=== PATIENT | male | born 1995 | race Caucasian/White ===

== ENCOUNTER 2017-01-22 22:35 | Inpatient (IN) | payer OTHER, MEDICAID ==
[~2017-01-22] VITALS: Ht 160 cm; Wt 68.9 kg
[2017-01-22 22:35] VITALS: BP_SYST 112
[2017-01-22] MEDS ORDERED: LAMO200T2 PO ×2 (22:57)
[2017-01-22] MEDS ORDERED: CLON1TAB4 PO (22:57)
[2017-01-22] MEDS ORDERED: LORazepam 2 MG/ML VIAL (FOR ER USE) IVP ONE (23:00)
[2017-01-22] MEDS ORDERED: LORazepam 2 MG/ML VIAL IM ONE (23:30)
[2017-01-23 01:36] LABS: BASOPHILS # (AUTO) 0.1 K/uL (0.0-0.2); EOSINOPHILS # (AUTO) 0.1 K/uL (0.0-0.4); LYMPHOCYTES # (AUTO) 1.2 K/uL (1.0-5.5); MEAN CORPUSCULAR HGB CONC 33 % (32-36)
[2017-01-23 01:42] LABS: BASOPHILS % (AUTO) 0.5 % (0.0-2.0); EOSINOPHILS % (AUTO) 0.8 % (0.0-4.0); HEMATOCRIT 51.3 % (36-54); LYMPHOCYTES % (AUTO) 6.3 % (20.5-51.5); MEAN CORPUSCULAR HEMOGLOBIN 29 pg (27-31); MEAN CORPUSCULAR VOLUME 89 fL (79.0-98.0); MONOCYTES # (AUTO) 0.7 K/uL (0.0-1.0); MONOCYTES % (AUTO) 3.7 % (1.7-9.3); NEUTROPHILS # (AUTO) 16.4 K/uL (1.8-7.7); NEUTROPHILS % (AUTO) 88.7 % (40.0-70.0); PLATELET COUNT (AUTO) 292 K/uL (130-430); RED BLOOD CELL COUNT(AUTO) 5.79 MIL/uL (4.2-6.2); RED CELL DISTRIBUTION WIDTH 12.2 % (9.0-15.0); WHITE BLOOD COUNT (AUTO) 18.5 K/uL (4.5-11.0)
[2017-01-23 01:44] LABS: CREATININE 0.72 mg/dL (0.55-1.30); POTASSIUM 3.9 mmol/L (3.5-5.1)
[2017-01-23 01:59] LABS: TOTAL BILIRUBIN 0.8 mg/dL (0.0-1.0)
[2017-01-23] MEDS ORDERED: ONDANSETRON HCL 4 MG/2 ML VIAL IM ONE (02:15)
[2017-01-23 02:28] LABS: PROTHROMBIN TIME 10.3 SECS (9.5-12.5)
[2017-01-23] MEDS ORDERED: cefTRIAXone 2 GM VIAL ONE (02:37)
[2017-01-23] MEDS ORDERED: LORazepam 2 MG/ML VIAL IVP PRN ×2 (03:00→06:30)
[2017-01-23 03:05] LABS: BILIRUBIN,URINE NEGATIVE (NEGATIVE); BLOOD, URINE TRACE (NEGATIVE); CLARITY/URINE SL CLOUDY (CLEAR); COLOR,URINE YELLOW (YELLOW); GLUCOSE,URINE NEGATIVE (NEGATIVE); KETONES,URINE NEGATIVE (NEGATIVE); LEUKOCYTE ESTERASE ,URINE NEGATIVE (NEGATIVE); NITRITE, URINE NEGATIVE (NEGATIVE); PROTEIN URINE 1+ (NEGATIVE); UROBILINOGEN,URINE 0.2 (0.2-1.0)
[2017-01-23 03:16] LABS: BACTERIA,URINE MODERATE /HPF (None Seen); RBC,URINE 0-3 /HPF (0-3); URINE AMORPHOUS PHOSPHATES 1+ /HPF (None Seen); WBC,URINE 0-3 /HPF (0-3)
[2017-01-23 03:18] LABS: BARBITURATE, URINE NEGATIVE (NEG <=200); BENZODIAZEPINE, URINE POSITIVE (NEG <=150); CANNABINOID, URINE NEGATIVE (NEG <=50); COCAINE, URINE NEGATIVE (NEG <=150); METHAMPHETAMINES SCREEN,URINE NEGATIVE (NEG <=500); OPIATE, URINE NEGATIVE (NEG <=100); PHENCYCLIDINE SCREEN,URINE NEGATIVE (NEG <=25); UR TRICYCLIC ANTIDEPRESSANTS NEGATIVE (NEG <=300); URINE AMPHETAMINE NEGATIVE (NEG <=500); URINE METHADONE NEGATIVE (NEG <=200); URINE OXYCODONE SCREEN NEGATIVE (NEG <=100); URINE PROPOXYPHENE SCREEN NEGATIVE (NEG <=300)
[2017-01-23 03:24] VITALS: BP_SYST 147
[2017-01-23] MEDS ORDERED: FLU VACC QS 2017-18(36MOS+)/PF 0.5 ML/SYR SYRINGE I.M. PRN (04:15)
[2017-01-23] MEDS: D5NS 1,000 ML IV SCH ×3 (04:38→17:50)
[2017-01-23] MEDS ORDERED: ACETAMINOPHEN 325 MG TABLET PO PRN (06:30)
[2017-01-23] MEDS ORDERED: ZOLPIDEM TARTRATE 5 MG TABLET PO PRN (06:30)
[2017-01-23] MEDS ORDERED: POTASSIUM CHLORIDE 20 MEQ TAB.PRT.SR PO PRN (06:30)
[2017-01-23] MEDS ORDERED: MAGNESIUM SULFATE 50 ML IV PRN (06:30)
[2017-01-23] MEDS ORDERED: ONDANSETRON HCL 4 MG/2 ML VIAL IVP PRN (06:30)
[2017-01-23] MEDS ORDERED: DOCUSATE SODIUM 100 MG CAPSULE PO PRN (06:30)
[2017-01-23] MEDS ORDERED: MUPIROCIN 2% TOPICAL OINTMENT 22 GM NS PRN (06:30)
[2017-01-23] MEDS ORDERED: MORPHINE 2 MG/ML INJ. SYRINGE IVP PRN ×2 (06:30)
[2017-01-23 08:00] VITALS: BP_SYST 116
[2017-01-23] MEDS ORDERED: LamoTRIgine 100 MG TABLET PO SCH ×2 (09:00→18:00)
[2017-01-23] MEDS: clonazePAM 0.5 MG TABLET PO SCH ×2 (10:03→20:22)
[2017-01-23] MEDS: HEPARIN SODIUM,PORCINE 5000 UNITS/ML VIAL SUBCUT SCH ×2 (10:04→20:23)
[2017-01-23 12:09] VITALS: BP_SYST 127
[2017-01-23 16:03] VITALS: BP_SYST 109
[2017-01-23 20:04] VITALS: BP_SYST 99
[2017-01-23] MEDS: cefTRIAXone 1 GM in D5W 50 ML IV SCH (20:22)
[2017-01-23] MEDS: LamoTRIgine 100 MG TABLET PO SCH (20:23)
[2017-01-24 00:12] VITALS: BP_SYST 98
[2017-01-24 04:06] VITALS: BP_SYST 97
[2017-01-24 07:17] LABS: BASOPHILS # (AUTO) 0.1 K/uL (0.0-0.2); BASOPHILS % (AUTO) 1.3 % (0.0-2.0); EOSINOPHILS # (AUTO) 0.4 K/uL (0.0-0.4); EOSINOPHILS % (AUTO) 4.2 % (0.0-4.0); HEMATOCRIT 48.4 % (36-54); HEMOGLOBIN 16.4 g/dL (14.0-18.0); LYMPHOCYTES # (AUTO) 2.4 K/uL (1.0-5.5); LYMPHOCYTES % (AUTO) 26.4 % (20.5-51.5); MEAN CORPUSCULAR HEMOGLOBIN 30 pg (27-31); MEAN CORPUSCULAR HGB CONC 34 % (32-36); MEAN CORPUSCULAR VOLUME 88 fL (79.0-98.0); MONOCYTES # (AUTO) 0.9 K/uL (0.0-1.0); MONOCYTES % (AUTO) 10.4 % (1.7-9.3); NEUTROPHILS # (AUTO) 5.2 K/uL (1.8-7.7); NEUTROPHILS % (AUTO) 57.7 % (40.0-70.0); PLATELET COUNT (AUTO) 249 K/uL (130-430); RED CELL DISTRIBUTION WIDTH 12.5 % (9.0-15.0)
[2017-01-24 07:19] LABS: CREATININE 0.74 mg/dL (0.55-1.30); POTASSIUM 3.5 mmol/L (3.5-5.1)
[2017-01-24 08:40] VITALS: BP_SYST 100
[2017-01-24] MEDS: LamoTRIgine 100 MG TABLET PO SCH ×2 (08:41→20:22)
[2017-01-24] MEDS: clonazePAM 0.5 MG TABLET PO SCH ×2 (08:41→20:22)
[2017-01-24] MEDS: HEPARIN SODIUM,PORCINE 5000 UNITS/ML VIAL SUBCUT SCH ×2 (08:42→20:24)
[2017-01-24] MEDS: D5NS 1,000 ML IV SCH ×2 (09:56→21:54)
[2017-01-24 12:21] VITALS: BP_SYST 104
[2017-01-24] MEDS ORDERED: AZITHROMYCIN 500 MG in D5W 250 ML IV SCH (15:00)
[2017-01-24 16:53] VITALS: BP_SYST 100
[2017-01-24] MEDS ORDERED: DIPHENHYDRAMINE HCL 12.5 MG/5 ML UDC PO PRN (19:00)
[2017-01-24 20:00] VITALS: BP_SYST 111
[2017-01-24] MEDS: cefTRIAXone 1 GM in D5W 50 ML IV SCH (20:29)
[2017-01-25] MEDS: D5NS 1,000 ML IV SCH ×2 (02:30→12:12)
[2017-01-25 04:23] VITALS: BP_SYST 106
[2017-01-25 07:37] LABS: BASOPHILS # (AUTO) 0.1 K/uL (0.0-0.2); BASOPHILS % (AUTO) 1.8 % (0.0-2.0); EOSINOPHILS # (AUTO) 0.4 K/uL (0.0-0.4); EOSINOPHILS % (AUTO) 4.8 % (0.0-4.0); HEMATOCRIT 49.4 % (36-54); HEMOGLOBIN 16.4 g/dL (14.0-18.0); LYMPHOCYTES # (AUTO) 2.9 K/uL (1.0-5.5); LYMPHOCYTES % (AUTO) 36.4 % (20.5-51.5); MEAN CORPUSCULAR HEMOGLOBIN 30 pg (27-31); MEAN CORPUSCULAR HGB CONC 33 % (32-36); MEAN CORPUSCULAR VOLUME 90 fL (79.0-98.0); MONOCYTES # (AUTO) 0.7 K/uL (0.0-1.0); MONOCYTES % (AUTO) 8.5 % (1.7-9.3); NEUTROPHILS % (AUTO) 48.5 % (40.0-70.0); PLATELET COUNT (AUTO) 228 K/uL (130-430); RED BLOOD CELL COUNT(AUTO) 5.49 MIL/uL (4.2-6.2); RED CELL DISTRIBUTION WIDTH 12.3 % (9.0-15.0); WHITE BLOOD COUNT (AUTO) 8.1 K/uL (4.5-11.0)
[2017-01-25 07:39] LABS: CALCIUM 9.3 mg/dL (8.4-11.0); CREATININE 0.6 mg/dL (0.55-1.30); POTASSIUM 3.8 mmol/L (3.5-5.1)
[2017-01-25 08:00] VITALS: BP_SYST 129
[2017-01-25] MEDS: LamoTRIgine 100 MG TABLET PO SCH (08:30)
[2017-01-25] MEDS: clonazePAM 0.5 MG TABLET PO SCH (08:30)
[2017-01-25] MEDS: HEPARIN SODIUM,PORCINE 5000 UNITS/ML VIAL SUBCUT SCH (08:37)
[2017-01-25 11:28] VITALS: BP_SYST 129
[2017-01-25 12:25] VITALS: BP_SYST 107
[2017-01-25] MEDS ORDERED: AZITHROMYCIN 500 MG in NS 250 ML IV ONE (13:00)
[2017-01-25] MEDS ORDERED: cefTRIAXone 1 GM IVPB PREMIX 50 ML IV ONE (13:00)
[2017-01-25] MEDS ORDERED: AZITHROMYCIN 500 MG in NS 250 ML IV SCH (13:01)
[2017-01-25 14:33] VITALS: BP_SYST 107
[2017-01-25 16:06] VITALS: BP_SYST 101
== END 2017-01-25 16:30 | disposition home health service (06) | DRG 871 ==
LOC: SED 22:35 → STU 01-23 02:53 → SMU 01-24 19:03
PROVIDERS: ADMIT General Practice; ATTEND General Practice
PROC: 02H633Z Insertion of Infusion Device into Right Atrium, Percutaneous Approach (ICD-10-PCS; principal; 2017-01-23)
DX: A41.9 Sepsis, unspecified organism (principal); J69.0 Pneumonitis due to inhalation of food and vomit; N17.0 Acute kidney failure with tubular necrosis; F84.0 Autistic disorder; N39.0 Urinary tract infection, site not specified; G90.9 Disorder of the autonomic nervous system, unspecified; G40.909 Epilepsy, unspecified, not intractable, without status epilepticus; R32 Unspecified urinary incontinence; E83.41 Hypermagnesemia; Z86.73 Personal history of transient ischemic attack (TIA), and cerebral infarction without residual deficits; Z98.2 Presence of cerebrospinal fluid drainage device; Z79.899 Other long term (current) drug therapy; Z88.1 Allergy status to other antibiotic agents
CPT/HCPCS: 36415; 70450-TC; 71010; 80048; 80053; 80307; 81000-TC; 83605; 83735-TC; 85025; 85610-TC; 87040-TC; 87086; 95816; 99285; C1751; J0456; J0696; J1644; J2060; J2405; J7042; J7050; J7060; Q2037

== ENCOUNTER 2019-04-28 08:08 | Emergency (ER) | payer OTHER, MEDICAID ==
[~2019-04-28] VITALS: Ht 160 cm; Wt 72.6 kg
[~2019-04-28 08:08] MED LIST: CLON1TAB12 PO
[2019-04-28 08:12] VITALS: BP_SYST 145
--- NOTE | 2019-04-28 08:20 | NUR ---
Patient triaged and placed in waiting room. VSS and patient appears in no acute distress at this time. Accompanied by parents, awaiting available bed, and MD notified of need for MSE.
--- NOTE | 2019-04-28 08:27 | NUR ---
Parents decided to leave.
== END 2019-04-28 08:27 | disposition left against medical advice (07) ==
LOC: SED 08:08
DX: R11.10 Vomiting, unspecified (principal); Z53.21 Procedure and treatment not carried out due to patient leaving prior to being seen by health care provider

== ENCOUNTER 2019-05-15 20:41 | Emergency (ER) | payer OTHER, MEDICAID ==
[~2019-05-15] VITALS: Ht 162.6 cm; Wt 61.2 kg
[2019-05-15 20:41] VITALS: BP_SYST 122
[2019-05-15] MEDS ORDERED: NACL 0.9% 1,000 ML IV ONE (21:15)
[2019-05-15 22:03] LABS: BASOPHILS % (AUTO) 0.3 % (0.0-2.0); EOSINOPHILS # (AUTO) 0.1 K/uL (0.0-0.4); MONOCYTES # (AUTO) 0.4 K/uL (0.0-1.0); PLATELET COUNT (AUTO) 283 K/uL (130-430)
[2019-05-15 22:07] LABS: CALCIUM 8.5 mg/dL (8.4-11.0); CREATININE 0.69 mg/dL (0.55-1.30); POTASSIUM 4.2 mmol/L (3.5-5.1)
[2019-05-15 22:10] LABS: EOSINOPHILS % (AUTO) 0.8 % (0.0-4.0); HEMATOCRIT 54.7 % (36-54); HEMOGLOBIN 18.5 g/dL (14.0-18.0); LYMPHOCYTES % (AUTO) 26.2 % (20.5-51.5); MEAN CORPUSCULAR HEMOGLOBIN 31 pg (27-31); MEAN CORPUSCULAR HGB CONC 34 % (32-36); MEAN CORPUSCULAR VOLUME 90 fL (79.0-98.0); MONOCYTES % (AUTO) 5.4 % (1.7-9.3); NEUTROPHILS # (AUTO) 5.2 K/uL (1.8-7.7); NEUTROPHILS % (AUTO) 67.3 % (40.0-70.0); RED BLOOD CELL COUNT(AUTO) 6.08 MIL/uL (4.2-6.2); RED CELL DISTRIBUTION WIDTH 13.5 % (9.0-15.0); WHITE BLOOD COUNT (AUTO) 7.7 K/uL (4.8-10.8)
[2019-05-15 22:11] LABS: ALBUMIN 4.2 g/dL (3.4-4.8); TOTAL BILIRUBIN 0.6 mg/dL (0.0-1.0)
[2019-05-16 01:26] VITALS: BP_SYST 117
== END 2019-05-16 01:26 | disposition home or self-care (01) ==
LOC: SED 20:41
DX: G40.901 Epilepsy, unspecified, not intractable, with status epilepticus (principal); Z88.1 Allergy status to other antibiotic agents
CPT/HCPCS: 36415; 70450; 71045; 80053; 85025; 87040; 99285; J7030

== ENCOUNTER 2020-01-24 19:13 | Emergency (ER) | payer OTHER, MEDICAID ==
[~2020-01-24] VITALS: Ht 160 cm; Wt 68.0 kg
[2020-01-24 19:15] VITALS: BP_SYST 108
--- NOTE | 2020-01-24 19:15 | NUR ---
Patient triaged and placed in waiting room. VSS and patient appears in no acute distress at this time. Accompanied by MOTHER, awaiting available bed, and MD notified of need for MSE.
--- NOTE | 2020-01-24 20:00 | NUR ---
Placed in room 8 . Placed on playground monitor, blood pressure machine and pulse oximeter. To gown for exam. Side rails up. Report given to AYSE FRIEDMAN.
--- NOTE | 2020-01-24 20:10 | NUR ---
ER Dr. MCPHERSON at bedside examining patient.
--- NOTE | 2020-01-24 20:20 | NUR ---
PT ALERT AND ACCOMPANIED BY MOTHER FOR WORSENING SEIZURES RECENTLY. LAST SEIZURE NOTED TO BE 2 DAYS AGO AND IS DESCRIBED TONIC CLONIC. PT IS MENTALLY CHALLENGED AND NONVERBAL WITH A CONTROL SPECIALIST SHUNT IN PLACE. PARENT IS WORRIED SHUNT IS BLOCKED. A DR. AVERY CALLED EARLIER TODAY TO REPORT THAT PT NEEDED A CT SCAN FOR A POSSIBLE TRANSFER.
--- NOTE | 2020-01-24 20:35 | NUR ---
LAB AT BEDSIDE TO DRAW BLOOD
[2020-01-24] MEDS ORDERED: LORazepam 2 MG/ML VIAL IM ONE (20:45)
--- NOTE | 2020-01-24 20:45 | NUR ---
PT AGITATED AND THRASHING, LAB UNABLE TO DRAW BLOOD AT THIS TIME
--- NOTE | 2020-01-24 21:12 | NUR ---
PT TO CT SCAN VIA WHEELCHAIR
--- NOTE | 2020-01-24 21:30 | NUR ---
PT BACK FROM CT SCAN
--- NOTE | 2020-01-24 22:15 | NUR ---
PT AGAIN REFUSED BLOOD DRAW, AWAITING CT RESULTS
--- NOTE | 2020-01-24 23:00 | NUR ---
ATTEMPTED TO DRAW THE PT FOR THE LAST TIME. PT REFUSED. OKAY TO DISCHARGE PT WITHOUT LABS PER DR. MCPHERSON.
--- NOTE | 2020-01-24 23:05 | NUR ---
Patient given written and verbal discharge instructions and verbalizes understanding. DR. VIDA FOREMAN MD discussed with patient the results and treatment provided. Patient in stable condition. ID arm band removed. Patient educated on pain management and to follow up with PMD. Pain Scale 0/10. Opportunity for questions provided and answered.
[2020-01-24 23:07] VITALS: BP_SYST 108
== END 2020-01-24 23:07 | disposition home or self-care (01) ==
LOC: SED 19:13
DX: G40.909 Epilepsy, unspecified, not intractable, without status epilepticus (principal); Z88.1 Allergy status to other antibiotic agents
CPT/HCPCS: 70450-TC; 71045; 74018; 76376; 96372; 99284

== ENCOUNTER 2020-12-12 19:25 | Emergency (ER) | payer OTHER, MEDICAID ==
[~2020-12-12] VITALS: Ht 160 cm; Wt 68.0 kg
[2020-12-12 19:30] VITALS: BP_SYST 126
[2020-12-12] MEDS ORDERED: LORazepam 2 MG/ML VIAL ONE (20:26)
[2020-12-12] MEDS ORDERED: LORazepam 2 MG/ML VIAL IVP ONE (20:30)
[2020-12-12 20:58] LABS: CALCIUM 8.5 mg/dL (8.4-11.0); CREATININE 0.82 mg/dL (0.55-1.30)
[2020-12-12 21:03] LABS: ALBUMIN 3.5 g/dL (3.4-4.8); TOTAL BILIRUBIN 0.5 mg/dL (0.0-1.0)
[2020-12-12 21:25] LABS: WHITE BLOOD COUNT (AUTO) 10.4 K/uL (4.8-10.8)
[2020-12-12 21:37] LABS: BASOPHILS % (AUTO) 0.4 % (0.0-2.0); EOSINOPHILS # (AUTO) 0.2 K/uL (0.0-0.4); EOSINOPHILS % (AUTO) 1.5 % (0.0-4.0); HEMATOCRIT 50.1 % (36-54); HEMOGLOBIN 17.2 g/dL (14.0-18.0); LYMPHOCYTES % (AUTO) 28.5 % (20.5-51.5); MEAN CORPUSCULAR HEMOGLOBIN 31 pg (27-31); MEAN CORPUSCULAR HGB CONC 34 % (32-36); MEAN CORPUSCULAR VOLUME 91 fL (79.0-98.0); MONOCYTES # (AUTO) 0.9 K/uL (0.0-1.0); MONOCYTES % (AUTO) 8.5 % (1.7-9.3); NEUTROPHILS # (AUTO) 6.3 K/uL (1.8-7.7); NEUTROPHILS % (AUTO) 61.1 % (40.0-70.0); PLATELET COUNT (AUTO) 275 K/uL (130-430); RED CELL DISTRIBUTION WIDTH 13.7 % (9.0-15.0)
[2020-12-12] MEDS ORDERED: VALPROATE SODIUM 500 MG in D5W 100 ML IV ONE (23:00)
[2020-12-12] MEDS ORDERED: VALPROATE SODIUM 100 MG/ML VIAL (DEPACON) IV ONE (23:03)
[2020-12-13] MEDS ORDERED: NACL 0.9% 1,000 ML IV ONE (01:15)
[2020-12-13 01:52] VITALS: BP_SYST 101
== END 2020-12-13 01:52 | disposition home or self-care (01) ==
LOC: SED 19:25
DX: G40.909 Epilepsy, unspecified, not intractable, without status epilepticus (principal); Z88.1 Allergy status to other antibiotic agents; Z79.899 Other long term (current) drug therapy
CPT/HCPCS: 36415; 70450; 76376; 80053; 80164; 85025; 96365; 96375; 99285; J2060

== ENCOUNTER 2021-06-22 13:14 | Emergency (ER) | payer OTHER, MEDICAID ==
[~2021-06-22] VITALS: Ht 160 cm; Wt 71.7 kg
[2021-06-22 13:14] VITALS: BP_SYST 127
--- NOTE | 2021-06-22 13:14 | NUR ---
Patient to ER bed 8 for evaluation. Side rails up. Report given to Gertrude FRIEDMAN.
[2021-06-22] MEDS ORDERED: NACL 0.9% 1,000 ML IV ONE (13:30)
[2021-06-22] MEDS ORDERED: levETIRAcetam 1,000 MG IV BAG 100 ML IV ONE (13:30)
--- NOTE | 2021-06-22 13:40 | NUR ---
ATTEMPTED TO START AN IV ON PT AND PT WAS NOT COOPERATIVE. PT GRABBED STAFF AND HITTING SELF IN THE HEAD. MOTHER AT BEDSIDE STATES THAT PT SHOULD BE PRE-MEDICATED PRIOR TO DOING ANY PROCEDURES.
[2021-06-22] MEDS ORDERED: LORazepam 2 MG/ML VIAL IM ONE (14:00)
[2021-06-22] MEDS ORDERED: HALOPERIDOL LACTATE 5 MG/ML VIAL IM ONE (14:00)
[2021-06-22] MEDS ORDERED: DIPHENHYDRAMINE INJ 50 MG/ML VIAL IM ONE (14:00)
--- NOTE | 2021-06-22 14:05 | NUR ---
PT GIVEN MEDICATION TO HELP CALM HIM DOWN. MOTHER AT BEDSIDE FOR ASSISTANCE.
--- NOTE | 2021-06-22 15:05 | NUR ---
ASSUMED CARE OF PATIENT. PATIENT AWAKE AND ALERT. ATTEMPTED TO START PIV. UNSUCCESSFUL. PATIENT AGGRESSIVE WITH STAFF. UNABLE TO REATTEMPT PIV. MD BAER MADE AWARE.
--- NOTE | 2021-06-22 15:11 | NUR ---
MD BAER AT BEDSIDE WITH FAMILY. WILL COME TO BRING MEDICATION FROM HOME.
[2021-06-22 17:20] VITALS: BP_SYST 114
--- NOTE | 2021-06-22 17:22 | NUR ---
Patient given written and verbal discharge instructions and verbalizes understanding. DR.PEEK AHSAN RODNEY discussed with patient the results and treatment provided. Patient in stable condition. ID arm band removed. Patient educated on pain management and to follow up with PMD. Pain Scale 0/10 Opportunity for questions provided and answered. Medication side effect fact sheet provided.
== END 2021-06-22 17:22 | disposition home or self-care (01) ==
LOC: SED 13:14
DX: G40.909 Epilepsy, unspecified, not intractable, without status epilepticus (principal); Z88.1 Allergy status to other antibiotic agents; Z79.899 Other long term (current) drug therapy
CPT/HCPCS: 71045; 96360; 96372; 99291; J1200; J1630; J2060; J7030; 99284; J1953

== ENCOUNTER 2021-06-29 09:28 | Emergency (ER) | payer OTHER, MEDICAID ==
[~2021-06-29] VITALS: Ht 162.6 cm; Wt 72.6 kg
--- NOTE | 2021-06-29 09:28 | NUR ---
Patient to ER bed 2 for evaluation. Side rails up. Report given to Jodi FRIEDMAN.
--- NOTE | 2021-06-29 09:29 | NUR ---
Dr Jiang to bedside to examine patient.
--- NOTE | 2021-06-29 09:30 | NUR ---
Pt. bib ACLS postictal, had 3 witnessed seizures, mom gave nasal midazolam and on scene EMS gave IM, pt. on nonrebreather with 15L/min. and sat. of 99%, RR 27, hx. obtained from mom, pt. was here saturday with seizures
--- NOTE | 2021-06-29 09:30 | NUR ---
accu check 124, attempted IV start twice, unsuccessful, called lab for blood draw
[2021-06-29 09:32] VITALS: BP_SYST 128
[2021-06-29 10:16] LABS: BASOPHILS # (AUTO) 0.3 K/uL (0.0-0.2); BASOPHILS % (AUTO) 2.9 % (0.0-2.0); EOSINOPHILS # (AUTO) 0.2 K/uL (0.0-0.4); EOSINOPHILS % (AUTO) 2.5 % (0.0-4.0); HEMOGLOBIN 17.2 g/dL (14.0-18.0); LYMPHOCYTES # (AUTO) 1.5 K/uL (1.0-5.5); LYMPHOCYTES % (AUTO) 16.5 % (20.5-51.5); MEAN CORPUSCULAR HEMOGLOBIN 30 pg (27-31); MEAN CORPUSCULAR HGB CONC 34 % (32-36); MEAN CORPUSCULAR VOLUME 89 fL (79.0-98.0); MONOCYTES # (AUTO) 0.6 K/uL (0.0-1.0); MONOCYTES % (AUTO) 7.2 % (1.7-9.3); NEUTROPHILS # (AUTO) 6.4 K/uL (1.8-7.7); NEUTROPHILS % (AUTO) 70.9 % (40.0-70.0); PLATELET COUNT (AUTO) 317 K/uL (130-430); RED BLOOD CELL COUNT(AUTO) 5.74 MIL/uL (4.2-6.2); RED CELL DISTRIBUTION WIDTH 13.6 % (9.0-15.0)
[2021-06-29 10:29] LABS: CALCIUM 8.9 mg/dL (8.4-11.0); CREATININE 0.94 mg/dL (0.55-1.30); POTASSIUM 4.5 mmol/L (3.5-5.1)
[2021-06-29 10:34] LABS: ALBUMIN 3.6 g/dL (3.4-4.8); TOTAL BILIRUBIN 0.2 mg/dL (0.0-1.0)
--- NOTE | 2021-06-29 10:57 | NUR ---
pt. given 16ml of Vimpat by mother per MD
--- NOTE | 2021-06-29 12:40 | NUR ---
Patients mom given written and verbal discharge instructions and verbalizes understanding. ER discussed with patient the results and treatment provided. Patient in stable condition. ID arm band removed. Patient educated on pain management and to follow up with PMD. Pain Scale 0. Opportunity for questions provided and answered.
[2021-06-29 12:42] VITALS: BP_SYST 106
== END 2021-06-29 12:40 | disposition home or self-care (01) ==
LOC: SED 09:28
DX: R56.9 Unspecified convulsions (principal); Z20.822 Contact with and (suspected) exposure to COVID-19
CPT/HCPCS: 36415; 70450-TC; 76376; 80053; 85025; 99291; 99292

== ENCOUNTER 2023-10-17 19:59 | Inpatient (IN) | payer OTHER, MEDICAID ==
[~2023-10-17] VITALS: Ht 157.5 cm; Wt 73.9 kg
[2023-10-17 20:15] VITALS: BP_SYST 142; PULSE 105; RESP 55; TEMP 96.9; O2SAT 92
[2023-10-17 20:28] LABS: HEMATOCRIT 58.2 % (36-54); HEMOGLOBIN 19.8 g/dL (14.0-18.0); MEAN CORPUSCULAR HEMOGLOBIN 31 pg (27-31); MEAN CORPUSCULAR HGB CONC 34 % (32-36); MEAN CORPUSCULAR VOLUME 91 fL (79.0-98.0); PLATELET COUNT (AUTO) 330 K/uL (130-430); RED CELL DISTRIBUTION WIDTH 13.6 % (9.0-15.0); WHITE BLOOD COUNT (AUTO) 19.3 K/uL (4.8-10.8)
[2023-10-17] MEDS: LORazepam 2 MG/ML VIAL IVP ONE ×3 (20:51→23:11)
[2023-10-17] MEDS: ONDANSETRON HCL 4 MG/2 ML VIAL IVP ONE (20:52)
[2023-10-17] MEDS: levETIRAcetam 1,000 MG IV BAG 100 ML IV ONE (20:53)
[2023-10-17 21:00] LABS: ANION GAP 15 (5-15); CALCIUM 9.2 mg/dL (8.4-11.0); CARBON DIOXIDE 24 mmol/L (23-29); CHLORIDE 104 mmol/L (98-107); GFR AFRICAN AMERICAN 131 mL/min (>90); GFR NON AFRICAN-AMERICAN 108 mL/min (>90); GLUCOSE 136 mg/dL (74-106); POTASSIUM 3.5 mmol/L (3.5-5.1); SODIUM SERUM 143 mmol/L (136-145); UREA NITROGEN, BLOOD 8 mg/dL (8-21)
[2023-10-17] MEDS: PIPERACILLIN/TAZO 3.375 GM in D5W 50 ML IV ONE (21:15)
[2023-10-17 21:37] LABS: ABG O2 SAT% ESTIMATE 90.4 % (94.0-100.0); BLOOD GAS BASE EXCESS -4.4 mmol/L (-3.0-3.0); BLOOD GAS HCO3 27.9 mmol/L (21.0-27.0); BLOOD GAS PCO2 81.8 mmHg (32.0-45.0); BLOOD GAS PO2 76.1 mmHg (75.0-100.0)
[2023-10-17] MEDS ORDERED: MIDAZOLAM HCL 2 MG/2 ML VIAL (VERSED) ONE (21:42)
[2023-10-17] MEDS: MIDAZOLAM HCL 2 MG/2 ML VIAL (VERSED) IVP ONE (21:42)
[2023-10-17 21:53] LABS: ATYPICAL LYMPHOCYTES % 6 % (0-0); BAND % (MANUAL) 9 % (0-6); LYMPHOCYTES % (MANUAL) 41 % (20-46); MONOCYTES % (MANUAL) 7 % (0-11)
[2023-10-17 21:54] LABS: BASOPHILS % (MANUAL) 0 % (0-2); EOSINOPHILS % (MANUAL) 0 % (0-7); PLATELET ESTIMATE ADEQUATE (ADEQUATE)
[2023-10-17 22:00] VITALS: BP_SYST 84; PULSE 151
[2023-10-17] MEDS ORDERED: PROPOFOL DRIP 100 ML IV ONE (22:03)
[2023-10-17] MEDS ORDERED: ALBUTEROL SULFATE 0.083% 2.5 MG/3 ML VIAL.NEB INH ONE (22:11)
[2023-10-17] MEDS ORDERED: IPRATROPIUM BROM 0.5 MG/2.5 ML VIAL.NEB (ATROVENT) INH PRN (22:30)
[2023-10-17] MEDS ORDERED: LORazepam 2 MG/ML VIAL IVP PRN (22:30)
[2023-10-17] MEDS ORDERED: ALBUTEROL SULFATE 0.083% 2.5 MG/3 ML VIAL.NEB INH PRN (22:30)
[2023-10-17] MEDS ORDERED: MORPHINE 2 MG/ML INJ. SYRINGE IVP PRN (22:30)
[2023-10-17] MEDS ORDERED: LORazepam 2 MG/ML VIAL ONE (22:37)
[2023-10-17] MEDS ORDERED: PIPERACILLIN/TAZOBACTAM 3.375 GM/VIAL (ZOSYN) IV ONE (22:44)
[2023-10-17] MEDS: D5NS 500 ML IV SCH (22:45)
[2023-10-17] MEDS: PROPOFOL DRIP 100 ML IV ONE (22:46)
[2023-10-17] MEDS ORDERED: KETAMINE HCL 500 MG/10 ML VIAL ONE (22:49)
[2023-10-17] MEDS: NACL 0.9% 1,000 ML IV ONE (23:30)
[2023-10-17] MEDS: KETAMINE HCL 500 MG/10 ML VIAL IVP ONE (23:32)
[2023-10-18] VITALS (33 sets, daily range): BP systolic 30–158; PULSE 105–129; RESP 17–36; TEMP 100.2–102; O2SAT 85–100
[2023-10-18] MEDS: DEXMEDETOMIDINE HCL 200 MCG/2 ML VIAL IV ONE (00:21)
[2023-10-18] MEDS ORDERED: NOREPINEPHRINE 4 MG/4 ML VIAL IV ONE (02:10)
[2023-10-18 02:54] LABS: BILIRUBIN,URINE NEGATIVE (NEGATIVE); BLOOD, URINE 2+ (NEGATIVE); CLARITY/URINE CLOUDY (CLEAR); COLOR,URINE YELLOW (YELLOW); GLUCOSE,URINE NEGATIVE (NEGATIVE); KETONES,URINE NEGATIVE (NEGATIVE); LEUKOCYTE ESTERASE ,URINE NEGATIVE (NEGATIVE); NITRITE, URINE NEGATIVE (NEGATIVE); PROTEIN URINE 1+ (NEGATIVE); UROBILINOGEN,URINE 0.2 (0.2-1.0)
[2023-10-18] MEDS: LORazepam 2 MG/ML VIAL IVP PRN (02:57)
[2023-10-18] MEDS: ALBUTEROL SULFATE 0.083% 2.5 MG/3 ML VIAL.NEB INH ONE (03:17)
[2023-10-18] MEDS: IPRATROPIUM BROM 0.5 MG/2.5 ML VIAL.NEB (ATROVENT) INH ONE (03:17)
[2023-10-18] MEDS: MORPHINE 4 MG INJ. 4 MG/ML VIAL IVP PRN (03:20)
[2023-10-18] MEDS: ONDANSETRON HCL 4 MG/2 ML VIAL IVP PRN (03:20)
[2023-10-18] MEDS: NOREPINEPHRINE BITARTRATE 4 MG in D5W 246 ML IV PRN (03:30)
[2023-10-18] MEDS: LORazepam 2 MG/ML VIAL IVP ONE (04:16)
[2023-10-18 04:57] LABS: BACTERIA,URINE None Seen /HPF (None Seen); RBC,URINE 50-80 /HPF (0-3); WBC,URINE 0-3 /HPF (0-3)
[2023-10-18 04:58] LABS: CALCIUM OXALATE CRYSTALS,UR 0-10 /HPF (None Seen)
[2023-10-18] MEDS ORDERED: PIPERACILLIN/TAZOBACTAM 3.375 GM/VIAL (ZOSYN) IV ONE (05:48)
[2023-10-18] MEDS: PIPERACILLIN/TAZO 3.375 GM in D5W 50 ML IV SCH (05:57)
[2023-10-18 07:07] LABS: ABG O2 SAT% ESTIMATE 97.1 % (94.0-100.0); BLOOD GAS BASE EXCESS -9.6 mmol/L (-3.0-3.0); BLOOD GAS HCO3 22.1 mmol/L (21.0-27.0); BLOOD GAS PCO2 70.5 mmHg (32.0-45.0); BLOOD GAS PH 7.114 (7.350-7.450); BLOOD GAS PO2 123.8 mmHg (75.0-100.0)
[2023-10-18 08:29] LABS: PROTHROMBIN TIME 10.8 SECS (9.5-12.5)
[2023-10-18 08:37] LABS: BASOPHILS % (AUTO) 0.1 % (0.0-2.0); EOSINOPHILS % (AUTO) 0.2 % (0.0-4.0); HEMATOCRIT 59.3 % (36-54); HEMOGLOBIN 19.1 g/dL (14.0-18.0); LYMPHOCYTES # (AUTO) 1.1 K/uL (1.0-5.5); MEAN CORPUSCULAR HEMOGLOBIN 31 pg (27-31); MEAN CORPUSCULAR HGB CONC 32 % (32-36); MEAN CORPUSCULAR VOLUME 96 fL (79.0-98.0); MONOCYTES # (AUTO) 0.7 K/uL (0.0-1.0); MONOCYTES % (AUTO) 8.3 % (1.7-9.3); NEUTROPHILS # (AUTO) 6.2 K/uL (1.8-7.7); NEUTROPHILS % (AUTO) 77.4 % (40.0-70.0); PLATELET COUNT (AUTO) 241 K/uL (130-430); RED BLOOD CELL COUNT(AUTO) 6.19 MIL/uL (4.2-6.2); RED CELL DISTRIBUTION WIDTH 14.5 % (9.0-15.0)
[2023-10-18 08:42] LABS: ALBUMIN 3.2 g/dL (3.4-4.8); CALCIUM 7.6 mg/dL (8.4-11.0); CREATININE 1.93 mg/dL (0.55-1.30); POTASSIUM 5.4 mmol/L (3.5-5.1); TOTAL PROTEIN, SERUM 6.5 g/dL (6.4-8.3)
[2023-10-18] MEDS: ACETAMINOPHEN 325 MG TABLET PO PRN (08:57)
[2023-10-18] MEDS ORDERED: FENTANYL CITRATE-0.9 % NACL/PF 100 ML IV PRN (09:00)
[2023-10-18] MEDS ORDERED: PANTOPRAZOLE SODIUM 40 MG/VIAL (PROTONIX) IVP SCH (09:00)
[2023-10-18] MEDS ORDERED: DEXMEDETOMIDINE HCL 200 MCG in NS 50 ML IV PRN (09:15)
[2023-10-18] MEDS: NOREPINEPHRINE BITARTRATE 8 MG in NS 242 ML IV PRN (09:38)
[2023-10-18] MEDS: PANTOPRAZOLE SODIUM 40 MG/VIAL (PROTONIX) IVP SCH (09:49)
[2023-10-18] MEDS: D5NS 1,000 ML IV SCH (10:12)
[2023-10-18] MEDS: CEFEPIME 1 GM in D5W 50 ML IV SCH (10:34)
[2023-10-18 11:21] LABS: CKMB RELATIVE INDEX 0.6 (0.0-2.9); CREATINE KINASE MB 8.2 ng/mL (0-3.6)
[2023-10-18] MEDS ORDERED: SUCCINYLCHOLINE CHLORIDE 20 MG/ML(QUELICIN) ONE (12:00)
[2023-10-18] MEDS ORDERED: ETOMIDATE 20 MG/ 10 ML VIAL (AMIDATE) ONE (12:00)
[2023-10-18] MEDS: PROPOFOL DRIP 100 ML IV PRN (13:21)
[2023-10-18] MEDS: VALPROATE SODIUM 1,000 MG in NS 100 ML IV ONE (13:22)
[2023-10-18 16:06] LABS: BLOOD GAS PCO2 40.1 mmHg (32.0-45.0)
[2023-10-18] MEDS: SODIUM BICARBONATE 8.4% JECT 50 MEQ/50 ML SYRINGE IVP ONE (16:48)
[2023-10-18 17:11] LABS: BLOOD GAS HCO3 14.7 mmol/L (21.0-27.0); BLOOD GAS PH 7.183 (7.350-7.450); BLOOD GAS PO2 45.1 mmHg (75.0-100.0)
[2023-10-18 17:12] LABS: ABG O2 SAT% ESTIMATE 70.4 % (94.0-100.0)
[2023-10-18] MEDS: NOREPINEPHRINE BITARTRATE 32 MG in NS 218 ML IV PRN (17:34)
[2023-10-18] MEDS: AMPICILLIN SODIUM/SULBACTAM NA 3 GM in NS 100 ML IV SCH (19:02)
[2023-10-18] MEDS: VALPROATE SODIUM 750 MG in D5W 100 ML IV SCH (20:08)
[2023-10-18] MEDS: LINEZOLID 300 ML IV SCH (20:10)
[2023-10-18] MEDS ORDERED: VALPROATE SODIUM 750 MG in D5W 100 ML IV SCH (21:00)
[2023-10-18] MEDS: XCOPRI 100 MG PO SCH (21:11)
[2023-10-18] MEDS: clonazePAM 0.5 MG TABLET NG SCH (21:11)
[2023-10-19] VITALS (40 sets, daily range): BP systolic 53–186; PULSE 114–141; RESP 10–35; TEMP 100.2–102.3; O2SAT 85–100
[2023-10-19] MEDS: PHENYLEPHRINE HCL 10 MG/ML VIAL (NEOSYNEPHRINE) ONE (00:25)
[2023-10-19] MEDS: PHENYLEPHRINE HCL 100 MG in NS 240 ML IV PRN (00:34)
[2023-10-19] MEDS: VASOPRESSIN 20 UNITS/ML VIAL IV ONE (03:31)
[2023-10-19] MEDS: EPINEPHrine JECT 0.1 MG/ML SYR ONE (04:20)
[2023-10-19] MEDS: EPINEPHrine HCL 1 MG/ML VIAL ONE (04:34)
[2023-10-19] MEDS ORDERED: SODIUM BICARBONATE 8.4% JECT 50 MEQ/50 ML SYRINGE ONE ×2 (05:47→14:20)
[2023-10-19] MEDS: SODIUM BICARBONATE 8.4% JECT 50 MEQ/50 ML SYRINGE ONE (05:53)
[2023-10-19] MEDS: SODIUM BICARBONATE 8.4% JECT 50 MEQ/50 ML SYRINGE IVP ONE ×2 (05:57→15:36)
[2023-10-19] MEDS: EPINEPHrine HCL 10 MG in NS 240 ML IV PRN (06:01)
[2023-10-19 06:10] LABS: BASOPHILS % (AUTO) 0.2 % (0.0-2.0); EOSINOPHILS % (AUTO) 0.1 % (0.0-4.0); HEMATOCRIT 52.8 % (36-54); HEMOGLOBIN 17.1 g/dL (14.0-18.0); LYMPHOCYTES # (AUTO) 2.6 K/uL (1.0-5.5); LYMPHOCYTES % (AUTO) 12.2 % (20.5-51.5); MEAN CORPUSCULAR HEMOGLOBIN 31 pg (27-31); MEAN CORPUSCULAR HGB CONC 32 % (32-36); MEAN CORPUSCULAR VOLUME 96 fL (79.0-98.0); MONOCYTES # (AUTO) 1.5 K/uL (0.0-1.0); MONOCYTES % (AUTO) 6.9 % (1.7-9.3); NEUTROPHILS % (AUTO) 80.6 % (40.0-70.0); PLATELET COUNT (AUTO) 199 K/uL (130-430); RED BLOOD CELL COUNT(AUTO) 5.51 MIL/uL (4.2-6.2); RED CELL DISTRIBUTION WIDTH 14.9 % (9.0-15.0); WHITE BLOOD COUNT (AUTO) 21.1 K/uL (4.8-10.8)
[2023-10-19 06:37] LABS: ALBUMIN 2.4 g/dL (3.4-4.8); CALCIUM 7.1 mg/dL (8.4-11.0); CREATININE 5.15 mg/dL (0.55-1.30); PHOSPHORUS 5.2 mg/dL (2.7-4.5); TOTAL BILIRUBIN 0.8 mg/dL (0.0-1.0)
[2023-10-19 07:14] LABS: BILIRUBIN,URINE 1+ (NEGATIVE); BLOOD, URINE 2+ (NEGATIVE); CLARITY/URINE SL CLOUDY (CLEAR); COLOR,URINE YELLOW (YELLOW); GLUCOSE,URINE NEGATIVE (NEGATIVE); KETONES,URINE TRACE (NEGATIVE); LEUKOCYTE ESTERASE ,URINE NEGATIVE (NEGATIVE); NITRITE, URINE NEGATIVE (NEGATIVE); PH,URINE 5.5 (5.0-8.0); PROTEIN URINE 2+ (NEGATIVE); UROBILINOGEN,URINE 0.2 (0.2-1.0)
[2023-10-19] MEDS ORDERED: SODIUM POLYSTYRENE SULFONATE 15 GM/60 ML UDBTL PO ONE (07:45)
[2023-10-19] MEDS ORDERED: SODIUM POLYSTYRENE SULFONATE 15 GM/60 ML UDBTL RC ONE (07:45)
[2023-10-19] MEDS: SODIUM BICARBONATE 8.4% VIAL 50 MEQ/50 ML VIAL INJ ONE (07:45)
[2023-10-19] MEDS: CALCIUM GLUCONATE 1 GM/10 ML VIAL ONE (07:53)
[2023-10-19] MEDS: INSULIN REGULAR, HUMAN 10 UNITS/0.1 ML, 3 ML VIAL IVP ONE (08:07)
[2023-10-19] MEDS: DEXTROSE 50% JECT 50 ML DISP.SYRIN IVP ONE ×2 (08:08→13:09)
[2023-10-19] MEDS: CALCIUM GLUC 2 GM/100ML-NACL 100 ML IV ONE (08:08)
[2023-10-19 08:12] LABS: BACTERIA,URINE MANY /HPF (None Seen); WBC,URINE 0-3 /HPF (0-3)
[2023-10-19 08:13] LABS: CALCIUM OXALATE CRYSTALS,UR 0-10 /HPF (None Seen)
[2023-10-19] MEDS: ACETAMINOPHEN 650 MG SUPP.RECT RC ONE (08:27)
[2023-10-19] MEDS: HYDROCORTISONE SOD SUCC 100 MG/2 ML VIAL IVP ONE (08:36)
[2023-10-19] MEDS: XCOPRI 200 MG PO SCH (09:00)
[2023-10-19] MEDS: PIPERACILLIN/TAZOBACTAM 2.25 GM in NS 50 ML IV ONE (09:05)
[2023-10-19] MEDS: SODIUM BICARBONATE 8.4% JECT 150 MEQ in D5W 1,000 ML IVP SCH (09:21)
[2023-10-19] MEDS: SODIUM POLYSTYRENE SULFONATE 15 GM/60 ML UDBTL PO ONE (09:29)
[2023-10-19] MEDS ORDERED: VANCOMYCIN HCL 1,000 MG in NS 250 ML IV SCH (10:00)
[2023-10-19 10:44] LABS: CKMB RELATIVE INDEX 0.6 (0.0-2.9)
[2023-10-19] MEDS: HYDROCORTISONE SOD SUCC 100 MG/2 ML VIAL IVP SCH (13:40)
[2023-10-19 14:13] LABS: INR 1.4 (0.80-1.20); PROTHROMBIN TIME 14.8 SECS (9.5-12.5)
[2023-10-19] MEDS ORDERED: DEXTROSE 50% JECT 50 ML DISP.SYRIN ONE (14:20)
[2023-10-19 14:41] LABS: CALCIUM 7.3 mg/dL (8.4-11.0); CREATININE 6.22 mg/dL (0.55-1.30); POTASSIUM 4.7 mmol/L (3.5-5.1)
[2023-10-19] MEDS ORDERED: DEXTROSE 50% JECT 50 ML DISP.SYRIN IVP PRN (15:15)
[2023-10-19] MEDS: VASOPRESSIN 40 UNITS in NS 38 ML IV PRN (15:20)
[2023-10-19] MEDS: NOREPINEPHRINE BITARTRATE 32 MG in NS 218 ML IV PRN (15:23)
[2023-10-19] MEDS: ACETAMINOPHEN 650 MG SUPP.RECT RC PRN (16:48)
[2023-10-19] MEDS ORDERED: MORPHINE SULFATE IN 0.9 % NACL 100 ML IV SCH (19:30)
[2023-10-19] MEDS ORDERED: NALOXONE HCL 0.4 MG/ML AMP (NARCAN) IVP PRN (19:30)
[2023-10-19] MEDS ORDERED: MORPHINE SULFATE IN 0.9 % NACL 100 ML IV ONE (19:38)
[2023-10-19] MEDS ORDERED: EPINEPHrine HCL 10 MG in NS 240 ML IV PRN (19:45)
[2023-10-19] MEDS ORDERED: PIPERACILLIN/TAZO 4.5 GM in D5W 100 ML IV SCH (21:00)
[2023-10-21] MEDS ORDERED: FLUCONAZOLE 200 mg/ NS 100 ML IV SCH (09:00)
== END 2023-10-19 20:03 | DRG 871 ==
LOC: SED 19:59 → SIC 22:16
PROVIDERS: ADMIT Internal Medicine; ATTEND Internal Medicine
PROC: 5A1945Z Respiratory Ventilation, 24-96 Consecutive Hours (ICD-10-PCS; principal; 2023-10-17)
PROC: 0BH17EZ Insertion of Endotracheal Airway into Trachea, Via Natural or Artificial Opening (ICD-10-PCS; 2023-10-17)
PROC: 02HV33Z Insertion of Infusion Device into Superior Vena Cava, Percutaneous Approach (ICD-10-PCS; 2023-10-18)
DX: A41.9 Sepsis, unspecified organism (principal); J69.0 Pneumonitis due to inhalation of food and vomit; J96.01 Acute respiratory failure with hypoxia; R65.21 Severe sepsis with septic shock; N17.0 Acute kidney failure with tubular necrosis; E87.20 Acidosis, unspecified; M62.82 Rhabdomyolysis; G93.49 Other encephalopathy; G40.901 Epilepsy, unspecified, not intractable, with status epilepticus; E87.5 Hyperkalemia; E83.51 Hypocalcemia; G80.9 Cerebral palsy, unspecified; Z79.899 Other long term (current) drug therapy; Z88.8 Allergy status to other drugs, medicaments and biological substances; Z88.1 Allergy status to other antibiotic agents
CPT/HCPCS: 36415; 36600; 70450-TC; 71045; 76770; 80048; 80053; 81000; 81001; 81015; 82550; 82553; 82570; 82803; 82948; 83605; 83735; 83880; 84100; 84302; 84484; 85007; 85025; 85027; 85610; 85730; 87040; 87070; 87081; 87086; 87205; 93005; 93306; 94002; 94003; 94070; 94640; 95816; 99291; 99292; J0171; J0295; J0330; J0612; J0692; J1720; J1815; J1953; J2020; J2060; J2270; J2405; J2470; J2543; J2704; J3370; J3465; J3490; J7050; J7060